=== PATIENT | female | born 1995 | race Caucasian/White ===

== ENCOUNTER 2021-02-27 07:09 | Emergency (ER) | payer MEDICAID, OTHER, SELFPAY ==
[2021-02-27 07:35] VITALS: BP 159/99; PULSE 88; RESP 18; TEMP 36.9; O2SAT 98; BMI 29.1
[2021-02-27 08:21] VITALS: BP 131/86; PULSE 70; RESP 16; TEMP 36.9; O2SAT 100
--- NOTE | 2021-02-27 08:55 | ED_ITS ---
HPI - Extremity Injury (Lower) General Chief Complaint: Extremity Injury, Lower Stated Complaint: Pain on feet and lower back Time Seen by Provider: 02/27/21 08:08 Source: patient Mode of arrival: ambulatory History of Present Illness HPI Narrative: 25-year-old female with a past medical history anxiety presenting to the ED complaining of left foot pain x5 months and low back pain times months. Denies known injury/trauma or falls. Denies radiation of back pain, numbness, tingling, weakness, urinary incontinence/retention, fever, chills. Reports foot pain worse in the morning, improved throughout the day, worse with prolonged standing/ambulation MD complaint: foot injury Related Data Previous Rx's Medication Instructions Recorded acetaminophen 500 mg tablet 500 mg PO Q6H PRN #20 tab 02/27/21 (Tylenol Extra Strength) cyclobenzaprine 5 mg tablet 5 mg PO Q8H PRN 5 Days #14 tab 02/27/21 lidocaine 5 % topical patch 1 patch TOPICAL DAILY PRN #30 ea 02/27/21 (Lidoderm) MDD remove after 12 hours naproxen 500 mg tablet 500 mg PO BID PRN 10 Days #20 tab 02/27/21 Allergies Allergy/AdvReac Type Severity Reaction Status Date / Time No Known Allergies Allergy Verified 02/27/21 09:19 Review of Systems Review of Systems: Constitutional: No Fever, No Chills Cardiovascular: No Chest Pain, No SOB Respiratory: No Cough, No Sputum, No Wheezing Gastrointestinal: No Nausea, No Vomiting, No Abdominal pain Genitourinary: No Urinary Frequency, No Urinary Incontinence/retention Musculoskeletal: + joint pain, No Myalgias, No Joint Swelling Skin: No Skin Lesions, No rash Neuro: No Weakness, No Numbness, No Paresthesias Yes all other systems are reviewed and are negative Neurologic: Denies Sensory deficit (Neuro) [facility] Past Medical History Attestation statement: The following information was validated with the patient. Medical History (Updated 02/27/21 @ 08:58 by JASON Womack) Anxiety Social History Social History Advance Directives: No Advance Directives Information Provided: No Patient : No Physical Exam Vital Signs: Vital Signs: Last Vital Signs Temp 98.5 F 02/27/21 08:21 Pulse 70 02/27/21 08:21 Resp 16 02/27/21 08:21 BP 131/86 02/27/21 08:21 Pulse Ox 100 02/27/21 08:21 Body Mass Index 29.1 Const: General: cooperative and healthy appearing Orientation/consciousness: patient oriented x3 Limitations: no limitations HENMT: Head: Yes normal to inspection Ears: hearing grossly normal bilaterally General nose exam: Normal external nose present Face and sinus: Yes normal facial exam Eyes: General: appearance normal, both eyes and all related structures EOM: EOMs intact bilaterally Neck: Other: No midline cervical spinous tenderness Neck: Yes normal visual inspection Resp: Effort & Inspection: normal respiratory effort Cardio: Rate: regular rate GI: Inspection: Yes normal to inspection Palpation (GI): Soft to palpation, nontender, no guarding and not rigid Back/Spine/Pelvis: Other: No midline thoracic/lumbar spinous tenderness/step- off. + MSK lumbar tenderness to palpation Skin: Rashes: no rashes Wounds: no wounds Neuro: Other: No saddle anesthesia, ambulating with steady General: patient oriented x3, gait normal, tone normal and moves all extremities Gait exam (Neuro): Normal gait present Sensory Exam: No Sensory deficit (Neuro) Extrem: Other: Left foot plantar aspect with mild tenderness to palpation mid foot. No erythema/cellulitis, no ecchymosis, NV intact General: Yes normal to inspection MDM - Extremity Injury (Lower) MDM Narrative Medical decision making narrative: 25-year-old female with a past medical history anxiety presenting to the ED complaining of left foot pain x5 months and low back pain x months. On exam vital signs stable, NAD, physical exam as above, no red flag symptoms are midline spinous tenderness throughout, likely MSK back pain and plantar fasciitis. Low concern for fracture, cauda equina, or cord compression Discussed with patient need follow-up with PCP/Podiatry Medical Records Attestation: I reviewed the patient's medical records. Lab Data Attestation: I reviewed the patient's lab results. Discharge Plan Discharge Clinical Impression: Plantar fasciitis, Back pain Patient Disposition: Home, Self-Care Instructions: Plantar Fasciitis (ED), Acute Low Back Pain (ED) Additional Instructions: You likely have plantar fasciitis, you should have a sole inserts placed in her shoes to help with arch support Your back pain is likely musculoskeletal Flexeril is a muscle relaxer, take at night as it makes you drowsy, do not drive, drink alcohol, or operate machinery while taking it Naproxen as an anti-inflammatory / pain medication, take with food Lidoderm patches are numbing patches, apply to painful area In addition take Tylenol at home You need to follow-up with a technology professional and her primary care doctor If symptoms persist or worsen, pain becomes unbearable, you developed urinary retention or incontinence, or weakness return to the ED Es probable que tenga fascitis plantar, debe colocar robles suela en melania zapatos para ayudar con el soporte del arco. Es probable que sharp dolor de espalda sea musculoesquel?laura Flexeril es un relajante muscular, t?gurrola por la noche ya que le produce somnolencia, no conduzca, no cathy alcohol ni utilice maquinaria mientras lo adalid. Naproxeno sheila medicamento antiinflamatorio / analg?sico, rancho con alimentos. Los parches de Lidoderm son parches que adormecen, se aplican al ?roman dolorida Adem?s, tome Tylenol en casa. Debe hacer un seguimiento con un pod?logo y sharp m?dico de atenci?n primaria. Si los s?ntomas persisten o empeoran, el dolor se vuelve insoportable, desarroll? retenci?n urinaria o incontinencia o debilidad, regrese al servicio de urgencias Prescriptions: New acetaminophen [Tylenol Extra Strength] 500 mg tablet 500 mg PO Q6H PRN (Reason: pain or fever) Qty: 20 RF: 0 lidocaine [Lidoderm] 5 % adhesive patch,medicated 1 patch topical DAILY MDD remove after 12 hours PRN (Reason: pain) Qty: 30 RF: 0 naproxen 500 mg tablet 500 mg PO BID PRN (Reason: pain) 10 Days Qty: 20 RF: 0 cyclobenzaprine 5 mg tablet 5 mg PO Q8H PRN (Reason: pain (scale score 7-10)) 5 Days Qty: 14 RF: 0 Referrals: Michael Rubio [Emergency Nurse] - 2 days Interventions: ED Discharge Assessment Last Done: 02/27/21 09:02 Print Language: Citizen Of [place]
== END 2021-02-27 09:29 | disposition home or self-care (01) ==
PROVIDERS: Emergency Provider Emergency Medicine
DX: M72.2 Plantar fascial fibromatosis (principal); M79.672 Pain in left foot; M54.5 Low back pain
CPT/HCPCS: 99283